=== PATIENT | male | born 1990 | race Caucasian/White ===

== ENCOUNTER 2018-05-18 15:02 | Emergency (ER) | payer OTHER ==
[~2018-05-18] VITALS: Ht 182.9 cm; Wt 87.5 kg
[2018-05-18] MEDS ORDERED: KETOROLAC 60 MG/2 ML VIAL (J1885) IM ONE (16:45)
[2018-05-18] MEDS ORDERED: IBUP80TA PO (17:54)
[2018-05-18] MEDS ORDERED: ROBA500T PO (17:54)
[2018-05-18 18:03] VITALS: BP 125/69
--- NOTE | 2018-05-19 08:04 | REP ---
RIGHT HIP, TWO VIEWS: HISTORY: Hip pain. There is no acute fracture or dislocation. The joint space is normal in appearance. IMPRESSION: There is no acute fracture or dislocation. Electronically Signed by Nirav Dias MD 05/19/2018 08:08 A
--- NOTE | 2018-05-19 08:05 | REP ---
RIGHT TIBIA/FIBULA, FOUR VIEWS: HISTORY: Leg pain. There is no acute fracture or dislocation. The joint spaces are normal in appearance. IMPRESSION: There is no hip fracture or dislocation. Electronically Signed by Nirav Dias MD 05/21/2018 02:37 P
--- NOTE | 2018-05-19 08:14 | REP ---
UNILATERAL RIGHT RIBS, PA CHEST, FIVE VIEWS: HISTORY: Right rib pain. The lungs are clear. The heart is normal in size. The pulmonary vasculature is normal in appearance. The bony structure is intact. IMPRESSION: No acute disease. Electronically Signed by Nirav Dias MD 05/19/2018 08:17 A
== END 2018-05-18 18:09 | disposition home or self-care (01) ==
LOC: M ED 15:02
DX: S70.01XA Contusion of right hip, initial encounter (principal); S80.11XA Contusion of right lower leg, initial encounter; S20.221A Contusion of right back wall of thorax, initial encounter; V49.19XA Passenger injured in collision with other motor vehicles in nontraffic accident, initial encounter; Y92.410 Unspecified street and highway as the place of occurrence of the external cause
CPT/HCPCS: 71101; 73502; 73590; 96372; 99283; J1885